=== PATIENT | male | born 1970 | race Caucasian/White ===

== ENCOUNTER 2017-03-05 06:53 | Day surgery (SDC) | payer OTHER ==
[2017-02-18 16:00] VITALS: BMI 29.0
[~2017-03-05] VITALS: Ht 188 cm; Wt 103.6 kg
[~2017-03-05 06:53] MED LIST: CEFAZOLIN 2000 MG/60 ML D5W IV SCH; LACTATED RINGER'S 1000ML 1,000 ML IV SCH
[2017-03-05] MEDS ORDERED: FENTANYL CITRATE INJ 50 MCG/1 ML 2 ML VIAL IV ONE (06:54)
[2017-03-05] MEDS ORDERED: CEFAZOLIN IV 2,000 MG/60 ML D5W IV ONE (06:54)
[2017-03-05 07:14] VITALS: BP 119/78; PULSE 72; TEMP 36.7; O2SAT 94; Ht 188 cm; Wt 103.6 kg
--- NOTE | 2017-03-05 08:25 | History & Physical Bridge Note ---
H&P Re-Evaluation Bridge Note: I have examined the patient, reviewed the History & Physical and in the interval since the performance of the History & Physical I have noted the following changes of clinical significance: pt had MRI and biopsy 5 months ago which was benign lesion, I reviewed MRI.
[2017-03-05] MEDS ORDERED: FENTANYL CITRATE INJ 50 MCG/1 ML 2 ML VIAL ONE ×3 (08:32→10:13)
[2017-03-05] MEDS ORDERED: MIDAZOLAM HCL 1 MG/ML 2ML VIAL ONE (08:32)
[2017-03-05] MEDS ORDERED: BUPIVACAINE 0.5 % 5 MG/1 ML MPF 30ML VIAL ONE (08:36)
[2017-03-05] MEDS ORDERED: LIDOCAINE/EPINEPHRINE 1% 20 ML VIAL ONE (08:36)
[2017-03-05] MEDS ORDERED: BACITRACIN OINT 15 GM TUBE ONE (08:36)
[2017-03-05] MEDS ORDERED: HYDROmorphone INJ 2 MG/ML SYR/VIAL ONE (10:14)
[2017-03-05] MEDS ORDERED: LABETALOL HCL IV 5 MG/ML 20ML IV PRN (10:15)
[2017-03-05] MEDS ORDERED: FLUMAZENIL 0.1 MG/1 ML 10 ML VIAL IV PRN (10:15)
[2017-03-05] MEDS ORDERED: EpHEDrine SULFATE INJ 50 MG/ML AMP IV PRN (10:15)
[2017-03-05] MEDS ORDERED: NALOXONE HCL 0.4 MG/1 ML VIAL/CARP IV PRN (10:15)
[2017-03-05] MEDS ORDERED: HYDROmorphone INJ 1 MG/ML SYR IV PRN (10:15)
[2017-03-05] MEDS ORDERED: ONDANSETRON INJ 2 MG/ML 2 ML VIAL IV PRN ×2 (10:15→10:30)
[2017-03-05] MEDS ORDERED: PROMETHAZINE HCL INJ 12.5 MG in SODIUM CHLORIDE 0.9% 50ML 50 ML IV PRN (10:15)
[2017-03-05] MEDS ORDERED: ATROPINE SULFATE 0.1 MG/ML 5ML SYR IV PRN (10:15)
[2017-03-05] MEDS ORDERED: LIDOCAINE HCL 2% 2 ML VIAL (20MG/ML) ONE (10:17)
[2017-03-05] MEDS ORDERED: ONDANSETRON INJ 2 MG/ML 2 ML VIAL ONE (10:17)
[2017-03-05] MEDS ORDERED: GLYCOPYRROLATE INJ 0.2 MG/ML VIAL ONE (10:17)
[2017-03-05] MEDS ORDERED: ROCURONIUM BROMIDE 10 MG/ML 5 ML VIAL ONE (10:17)
[2017-03-05] MEDS ORDERED: DEXAMETHASONE SOD INJ 4 MG/ML VIAL ONE (10:17)
[2017-03-05] MEDS ORDERED: PROPOFOL IV EMULSION 10 MG/ML 20 ML VIAL IV ONE (10:17)
[2017-03-05] MEDS ORDERED: NEOSTIGMINE METHYLSULFATE 5 MG/5 ML SYR ONE (10:17)
[2017-03-05] MEDS ORDERED: OXYC-57 PO (10:22)
--- NOTE | 2017-03-05 10:27 | Discharge Instructions ---
Discharge Instructions Date of Service March 05, 2017. Admission Reason for Admission: Right Leg Mass Discharge Discharge Diagnosis / Problem: Right Gluteal mass, status post excision right gluteal mass Discharge Goals Goal(s): Decrease discomfort Activity Recommendations Activity Limitations: as noted below No strenuous activity or lifting over 10 pounds for 2 weeks or until cleared by Dr. Rogers No sitting down for long periods of time greater than 2 hours. You may lay on your side No driving while taking narcotic pain medication No submerging incision for at least 3 weeks . Instructions / Follow-Up Instructions / Follow-Up You may shower in 4 days, sponge bath in meantime and may wash your hair Keep dressing on for 4 days and then remove You have a pressure dressing applied (some gauze and thicker padding with tape) to prevent fluid collection given size of incision You need follow-up with Dr. Rogers in 1-2 weeks , please call office at if you do not already have an appointment Current Hospital Diet Patient's current hospital diet: Discharge Diet Recommended Diet: Regular Diet Procedures Procedures Performed: Right Gluteal Mass Resection Pending Studies Studies pending at discharge: no Medical Emergencies . Who to Call and When: Medical Emergencies: If at any time you feel your situation is an emergency, please call 911 immediately. . Non-Emergent Contact Non-Emergency issues call your: Primary Care Provider, Surgeon Call Non-Emergent contact if: you have a fever, temperature is above 101.5, your pain is not controlled, your pain is worsening, wound has increased drainage, wound has increased redness, wound has increased pain . "Provider Documentation" section prepared by Dona Medel. . VTE Core Measure Inpt VTE Proph given/why not?: SCD's [place] Drug Monitoring Program Search Results: patient reviewed within database, no issues identified
[2017-03-05] MEDS ORDERED: OXYCODONE/ACETAMINOPHEN 5-325 TAB PO PRN (10:30)
[2017-03-05] MEDS ORDERED: MoRPHine SULFATE 2 MG/ML CARP IV PRN (10:30)
--- NOTE | 2017-03-05 10:30 | [facility] Post Operative Brief Note ---
Immediate Operative Summary Operative Date March 05, 2017. Pre-Operative Diagnosis Right Gluteal Mass Post-Operative Diagnosis Right Gluteal Mass Procedure(s) Performed Right Gluteal Mass Resection Surgeon Dr. Rogers Motel Manager Surgeon(s) Dona Rodriguez Estimated Blood Loss 10 ML Findings right Gluteal mass Fluids (cc crystalloids) 800ml Specimens A: Right Gluteal Mass Drains none Anesthesia General Complication(s) None Disposition Recovery Room / PACU
[2017-03-05] MEDS ORDERED: KETOROLAC TROMETHAMINE 30 MG/ML VIAL ONE (10:33)
[2017-03-05] MEDS ORDERED: HYDROmorphone INJ 1 MG/ML SYR ONE (10:36)
--- NOTE | 2017-03-05 11:01 | Anesthesiology Progress Note ---
Anesthesia Post Op Note Date & Time March 05, 2017 at 11:00 Vital Signs Pain Intensity: 3 Vital Signs Past 12 Hours Date Time Temp Pulse Resp B/P Pulse Ox O2 Delivery O2 Flow Rate FiO2 03/05/17 10:50 118/82 03/05/17 10:49 58 9 100 03/05/17 10:49 58 9 03/05/17 10:45 127/87 03/05/17 10:44 59 14 100 03/05/17 10:44 59 14 03/05/17 10:40 131/81 03/05/17 10:39 60 13 100 03/05/17 10:39 60 13 03/05/17 10:35 131/91 03/05/17 10:34 70 11 100 03/05/17 10:34 71 11 03/05/17 10:29 68 10 03/05/17 10:29 68 10 137/92 100 03/05/17 10:29 36.3 69 14 137/92 100 Mask 10 03/05/17 07:14 36.7 72 20 119/78 94 Room Air Notes Mental Status: alert / awake / arousable, participated in evaluation Pt Amnestic to Procedure: Yes Nausea / Vomiting: adequately controlled Pain: adequately controlled Airway Patency, RR, SpO2: stable & adequate BP & HR: stable & adequate Hydration State: stable & adequate Anesthetic Complications: no major complications apparent
[2017-03-05 11:40] VITALS: BP 127/78; PULSE 74; TEMP 36.5; O2SAT 94
[2017-03-05] MEDS ORDERED: OXYCODONE/ACETAMINOPHEN 5-325 TAB ONE (12:03)
[2017-03-05 12:10] VITALS: BP 118/84; PULSE 60; TEMP 36.5; O2SAT 94
[2017-03-05 12:35] VITALS: BP 122/84; PULSE 60; TEMP 36.5; O2SAT 95
--- NOTE | 2017-03-05 12:45 | OPERATIVE REPORT ---
DATE OF OPERATION: 03/05/2017 PREOPERATIVE DIAGNOSES: Right gluteal mass. POSTOPERATIVE DIAGNOSES: Right gluteal mass. PROCEDURE: Resection right gluteal mass. SURGEON: Dr. Enrrique Rogers. ANESTHESIA: General. ESTIMATED BLOOD LOSS: About 10 mL. FINDINGS: Right gluteal mass. COMPLICATIONS: None. INDICATIONS FOR THE PROCEDURE: This is a 46-year-old gentleman who presented with right gluteal mass for 20 years, the mass is getting bigger, sometimes causes the patient pain. The patient had MRI and biopsy on the mass about 6 months ago which showed benign lesion. The patient required resection of the right gluteal mass. I did talk to the patient about the benefit and risk, alternate procedure. I indicated the risks may include but not limited such as bleeding, infection, hematoma, injury to the nerves, vessel causing dysfunction in the legs, if malignant tumor may need more procedure, DVT, even . The patient understands. He signed informed consent and I answered all questions. OPERATION AND FINDINGS: DETAILS OF PROCEDURE: We brought the patient to the OR, put the patient in the supine position. The patient received SCD on bilateral legs to prevent DVT. Also, the patient received 2 grams Ancef IV for prophylactic antibiotic. The patient received general anesthesia without difficulty. Then we repositioned the patient after general anesthesia, put on the face-down position and then the markers on the mass, measured the mass about 12 cm x 14 cm on the right gluteus. Then the tumor site was prepped and draped in routine sterile fashion. After time out, I made about 12 cm incision just above the tumor and opened the subcutaneous layer, opened the fascial layer and reached the right gluteus jennifer and we found the patient had tumor size about 12 x 14 cm just inside right gluteus jennifer. I the muscle then completely removed the tumor intact and hemostasis obtained. Then I used 2-0 Vicryl, closed the muscle fascial layer continuous running, closed subcutaneous layer using 2-0 Vicryl continuous running, closed skin by using staple and once we removed the tumor we also took some pictures. The patient tolerated the procedure well. After the procedure, the patient transferred to recovery room in stable condition. All the instrument, needle and sponge count correct x2 at the end of the case. The specimen sent to pathology. I attest to the content of the Intraoperative Record and any orders documented therein. Any exceptions are noted below. SHEYLAD
[2017-03-06] MEDS ORDERED: CEFAZOLIN IV 2,000 MG/60 ML D5W IV ONE (06:00)
[2017-08-14] MEDS ORDERED: CYCL5TAB PO (10:30)
[2017-08-14] MEDS ORDERED: VARE1PAK15 PO (10:30)
[2017-08-14] MEDS ORDERED: IBUP-103 PO (10:30)
[2017-08-14] MEDS ORDERED: TURM1CAP4 PO (10:33)
[2017-08-14] MEDS ORDERED: OMEGCAP2 PO (10:33)
[2017-08-14] MEDS ORDERED: MISCCAP55 PO (10:33)
== END 2017-03-05 12:45 | disposition home or self-care (01) ==
LOC: C.ACU 06:53
PROVIDERS: ATTEND Surgery
DX: C49.5 Malignant neoplasm of connective and soft tissue of pelvis (principal); Z82.49 Family history of ischemic heart disease and other diseases of the circulatory system; Z87.891 Personal history of nicotine dependence